=== PATIENT | male | born 1950 | race African-American/Black ===

== ENCOUNTER 2018-07-15 11:23 | Emergency (ER) | payer OTHER ==
[~2018-07-15] VITALS: Ht 188 cm; Wt 74.8 kg
[2018-07-15] MEDS ORDERED: LISINOPRIL (11:49)
[2018-07-15 12:06] LABS: ABSOLUTE NEUTROPHILS 2.7 thou/uL (1.4-8.2); BASOPHILS 0.9 % (0.0-2.0); EOSINOPHILS 2.1 % (0.0-3.0); HEMATOCRIT 39.1 % (42.0-52.0); HEMOGLOBIN 13.2 gm/dL (14.0-18.0); LYMPHOCYTES 38.8 % (24.0-44.0); MCH 30.8 pg (26.0-34.0); MCHC 33.7 g/dL (28.0-37.0); MCV 91.5 fL (80.0-100.0); MONOCYTES 8.6 % (1.0-8.0); PLATELET COUNT 213 thou/uL (150-400); POLYS 49.6 % (36.0-66.0); RBC 4.28 mil/uL (4.50-6.00); RDW 15.2 % (10.5-14.5); WBC 5.5 thou/uL (4.0-11.0)
[2018-07-15 12:16] LABS: ANION GAP 7 mmol/L (7-16); BUN 16 mg/dL (7-18); CALCIUM 9.4 mg/dL (8.5-10.1); CHLORIDE 105 mmol/L (98-107); CO2 25 mmol/L (21-32); CREATININE 1.7 mg/dL (0.7-1.3); GLUCOSE 134 mg/dL (74-106); POTASSIUM 4.5 mmol/L (3.5-5.1); SODIUM 137 mmol/L (136-145)
[2018-07-15 12:20] LABS: APTT 26.4 Seconds (24.5-32.8); INR 1.1; PROTIME 11.9 Seconds (9.3-11.4)
[2018-07-15 12:25] LABS: ALBUMIN 3.4 g/dL (3.4-5.0); SGOT 17 U/L (15-37); SGPT 13 U/L (30-65); TOTAL BILIRUBIN 0.5 mg/dL (<0.1-1.0); TOTAL PROTEIN 7.7 g/dL (6.4-8.2); TROPONIN-I <0.06 ng/mL (<0.06)
[2018-07-15] MEDS ORDERED: ANTIVERT25 MG PO (16:46)
[2018-07-15] MEDS ORDERED: NORFLEX100 MG PO (16:46)
[2018-07-15 17:07] VITALS: BP 110/62
--- NOTE | 2018-07-16 09:16 | EKG ---
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: [facility] : 1950 Requested By: Corwin Ramos Order Number: [id number] MD: Carl Marsh Measurements Intervals [place] Rate: 62 P: -46 VT: 182 QRS: -29 QRSD: 97 T: 242 QT: 491 QTc: 499 Interpretive Statements Sinus or ectopic atrial rhythm Poor R wave progression Abnormal T, consider ischemia No previous ECG available for comparison Electronically Signed On 07-16-2018 9:16:18 CDT by Carl Marsh [email or web address] ��������������������������������������������� <ELECTRONICALLY SIGNED> ���������������������������������������� By: Carl Marsh MD, [facility] ��������������������������������������������� 07/16/18 0916 1136 1136 Carl Marsh MD, FACC /EPI
== END 2018-07-15 17:08 | disposition home or self-care (01) ==
LOC: ER 11:23
PROVIDERS: Emergency Medicine
DX: R42 Dizziness and giddiness (principal); F17.210 Nicotine dependence, cigarettes, uncomplicated

== ENCOUNTER 2019-01-30 05:59 | Inpatient (IN) | payer OTHER ==
[~2019-01-30] VITALS: Ht 188 cm; Wt 77.1 kg
[~2019-01-30 05:59] MED LIST: ANTIVERT25 MG PO; LISINOPRIL; NORFLEX100 MG PO
[2019-01-30 06:00] VITALS: BP 210/150
[2019-01-30 06:24] LABS: ABSOLUTE NEUTROPHILS 2.4 thou/uL (1.4-8.2); EOSINOPHILS 1.6 % (0.0-3.0); HEMATOCRIT 38.5 % (42.0-52.0); HEMOGLOBIN 12.6 gm/dL (14.0-18.0); LYMPHOCYTES 40.6 % (24.0-44.0); MCH 29.7 pg (26.0-34.0); MCHC 32.8 g/dL (28.0-37.0); MCV 90.7 fL (80.0-100.0); PLATELET COUNT 257 thou/uL (150-400); POLYS 48.8 % (36.0-66.0); RBC 4.25 mil/uL (4.50-6.00); RDW 15.7 % (10.5-14.5); WBC 4.9 thou/uL (4.0-11.0)
[2019-01-30] MEDS ORDERED: AMLODIPINE BESY10 MG PO (06:25)
[2019-01-30] MEDS ORDERED: COREG25 M1 PO (06:27)
[2019-01-30 06:28] LABS: CALCIUM 8.8 mg/dL (8.5-10.1); CREATININE 1.2 mg/dL (0.7-1.3); POTASSIUM 3.5 mmol/L (3.5-5.1)
[2019-01-30] MEDS ORDERED: HYDRALAZINE 2525 M1 PO (06:28)
[2019-01-30] MEDS ORDERED: CARVEDILOL25 MG PO (06:31)
[2019-01-30] MEDS ORDERED: IRBESARTAN75 MG PO (06:33)
[2019-01-30 06:37] LABS: TROPONIN-I 0.06 ng/mL (<0.06)
[2019-01-30] MEDS ORDERED: CLONIDINE HCL0.2 M2 PO (07:08)
--- NOTE | 2019-01-30 11:09 | EKG ---
[address] [address] ELECTROCARDIOGRAM REPORT Name: PURNIMA SUMMERS Room #: 170-1 ADM IN M.R.#: [id number] Admission: 01/30/19 Attend Phys: Josh Cody MD Discharge: Date of : 46 Report #: [id number] THIS REPORT FOR: //name// [facility] ED Test Date: 2019-01-30 Test Time: 06:01:08 Pat Name: PURNIMA SUMMERS Department: Room: 170 Gender: M Supervisor Agricultural Education: MARY : 1950 Requested By: Corwin Ramos Order Number: [id number] MD: Carl Marsh Measurements Intervals [place] Rate: 89 P: -17 MD: 167 QRS: -19 QRSD: 94 T: 107 QT: 377 QTc: 459 Interpretive Statements Sinus rhythm Atrial premature complexes LVH with secondary repolarization abnormality no previous ECGs available for comparison Electronically Signed On 01-30-2019 11:09:40 CDT by Carl Marsh [email or web address] <ELECTRONICALLY SIGNED> By: Carl Marsh MD, [facility] 01/30/19 1109 D: 10600 0 Carl Marsh MD, FACC /EPI
[2019-01-30 13:22] VITALS: BP 121/72
[2019-01-30 14:29] VITALS: BP 124/76
[2019-01-30 14:31] VITALS: BP 124/76
[2019-01-30 15:18] VITALS: BP 149/103
--- NOTE | 2019-01-30 15:22 | NUR ---
PT ORIENTED TO ROOM AND UNIT. BED LOW AND LOCKED, SIDE RIALS UPX3 CALL LIGHT IN REACH. TELE APPLIED AND ALL DOCUMENTS SIGNED. WILL CONTINUE TO ASSESS.
[2019-01-30 19:49] VITALS: BP 157/111
[2019-01-30] MEDS ORDERED: MELATONIN5 M6 PO (19:57)
[2019-01-31 00:20] VITALS: BP 141/89
--- NOTE | 2019-01-31 04:01 | NUR ---
Patient making slow progress towards outcome goals. Rhythm stable. No complaints of chest pain. BP slowly coming down. Low fall risks. Calls out appropriately for needs. Cardiology consulted. Current smoker, smoking cessation info provided.
[2019-01-31 04:20] VITALS: BP 149/106
[2019-01-31 07:33] VITALS: BP 161/119
--- NOTE | 2019-01-31 11:53 | EKG ---
[place] [address] [facility] [place] [address] ELECTROCARDIOGRAM REPORT Name: PURNIMA SUMMERS Room #: 353-P ADM IN M.R.#: [id number] Admission: 01/30/19 Attend Phys: Josh Cody MD Discharge: Date of : 46 Report #: [id number] THIS REPORT FOR: //name// [facility] Test Date: 2019-01-31 Test Time: 09:41:02 Pat Name: PURNIMA SUMMERS Department: Room: 353 P Gender: M Instructor Dancing: Da PARTIDA : 1950 Requested By: Laurence Shields Order Number: [id number] MD: Carl aMrsh Measurements Intervals [place] Rate: 61 P: 51 MT: 180 QRS: -12 QRSD: 96 T: 210 QT: 450 QTc: 454 Interpretive Statements Sinus rhythm Left ventricular hypertrophy Abnormal T, consider ischemia Compared to ECG 01/30/2019 06:01:08 T-wave abnormality more prominent Electronically Signed On 01-31-2019 11:52:45 CDT by Carl Marsh [email or web address] <ELECTRONICALLY SIGNED> By: Carl Marsh MD, [facility] 01/31/19 1152 0941 0941 Carl Marsh MD, [facility] /EPI
[2019-01-31 12:14] VITALS: BP 135/92
[2019-01-31 16:46] VITALS: BP 156/113
[2019-01-31 17:48] LABS: CHOLESTEROL 145 mg/dL (<200); HDL CHOLESTEROL 61 mg/dL (>40); LDL CHOLESTEROL 75 mg/dL (<100); TC:HDL 2.4 Ratio (Not establshd); TRIGLYCERIDE 48 mg/dL (<150); VLDL 10 mg/dL (<40)
--- NOTE | 2019-01-31 18:00 | NUR ---
ASSUMED PATIENT CARE AT 0700. FEELS CHEST PRESSURE. NO N/V. UP AD SANDIE. WILL HAVE HEART CATH IN AM. WILL KEEP MONITOR.
[2019-01-31 19:10] VITALS: BP 108/74
[2019-02-01] VITALS (14 sets, daily range): BP systolic 114–167; BP diastolic 72–127
--- NOTE | 2019-02-01 04:29 | NUR ---
Patient making slow progress towards outcome goals. Denies chest pain. BP slowly coming down. NPO after MN for heart cath. Consent obtained by previous shift. Patient expressed understanding of procedurem states he has no questions at this time.
[2019-02-01 05:43] LABS: CALCIUM 8.8 mg/dL (8.5-10.1); CREATININE 1.3 mg/dL (0.7-1.3); POTASSIUM 4.5 mmol/L (3.5-5.1)
--- NOTE | 2019-02-01 09:04 | NUR ---
ASSUMED CARE OF PATIENT AT 0700. PATIENT TAKEN TO ORIENTATION AND MOBILITY SPECIALIST/ECHO SHORTLY AFTER. PATIENT ALERT AND ORIENTED X4. HIS MAIN CONCERN WAS SPEAKING WITH HIS PHYSICIANS TODAY. RECIEVED ORDER FOR PATIENT TO TRANSFER TO CCU. AWAITING BED FROM IT ANALYST. PATIENT TELEMETRY REMOVED PRIOR TO HIM BEING TRANSPORTTED OFF THE FLOOR. PATIENT'S PERSONAL BELONGINGS ARE STILL IN HIS ROOM HERE.
--- NOTE | 2019-02-01 12:22 | 2DMMODE ---
[facility] [address] [place] [address] 2 D/M-MODE ECHOCARDIOGRAM Name: MELINAPURNIMA Room #: 200-I ADM IN .R.#: [id number] Admission: 01/30/19 Attend Phys: Carson Diane Discharge: Date of : 46 Report #: [id number] THIS REPORT FOR: //name// APPROVED REPORT Study performed: 02/01/2019 10:17:49 EXAM: Comprehensive 2D, Doppler, and color-flow Echocardiogram Patient Location: Bedside Room #: 353 Status: routine BSA: 2.02 HR: 54 bpm BP: 158/114 mmHg Rhythm: Bradycardia Other Information Study Quality: Good Indications CAD Chest Pain 2D Dimensions RVDd: 28.08 mm IVSd: 13.86 (7-11mm) LVOT Diam: 22.26 (18-24mm) LVDd: 48.20 mm PWd: 14.31 (7-11mm) Ascending Ao: 34.16 (22-36mm) LVDs: 40.21 (25-40mm) Aortic Root: 33.36 mm IVC: 22.00 mm Volumes Left Atrial Volume (Systole) Single Plane 4CH: 110.11 mL Single Plane 2CH: 96.15 mL LA ESV Index: 53.00 mL/m2 Aortic Valve AoV Peak Blas.: 1.79 m/s AO Peak Gr.: 12.78 mmHg LVOT Max P.47 mmHg AO Mean Gr.: 6.80 mmHg LVOT Mean P.39 mmHg AO V2 Mean: 1.21 m/s LVOT Max V: 1.06 m/s AO V2 VTI: 30.14 cm LVOT Mean V: 0.69 m/s MARIBELL (VTI): 2.79 cm2 LVOT V1 VTI: 21.64 cm MARIBELL Vmax: 2.30 cm2 SV (LVOT): 84.21 mL [facility] [place] [place] [address] 2 D/M-MODE ECHOCARDIOGRAM Name: MELINAPURNIMA Room #: 200-I [facility] IN .R.#: [id number] Admission: 01/30/19 Attend Phys: Carson Diane Discharge: Date of : 46 Report #: [id number] Mitral Valve E/A Ratio: 4.7 MV Decel. Time: 192.88 ms MV E Max Blas.: 0.94 m/s MV A Blas.: 0.20 m/s MV PHT: 55.93 ms IVRT: 143.02 ms Pulmonary Valve PV Peak Blas.: 1.07 m/s PV Peak Gr.: 4.91 mmHg Pulmonary Vein P Vein S: 0.23 m/s P Vein A: 0.16 m/s P Vein D: 0.58 m/s P Vein A Dur.: 96.9 msec P Vein S/D Ratio: 0.40 Tricuspid Valve TR Peak Blas.: 3.51 m/s TR Peak Gr.: 49.16 mmHg PA Pressure: 59.00 mmHg Left Ventricle The left ventricle is normal size. There is global hypokinesis of the left ventricle. Mild concentric left ventricular hypertrophy. Left ventricular systolic function is moderate to severely decreased. LVEF is 30-35%. Severe diastolic dysfunction Right Ventricle The right ventricle is normal size. The right ventricular systolic function is normal. Atria Left atrium is dilated. Right atrium is dilated. Aortic Valve Aortic valve is calcified. Trace to mild aortic regurgitation. Mild aortic stenosis. Mitral Valve Mild mitral annular calcification Moderate mitral regurgitation. No evidence of mitral valve stenosis. Tricuspid Valve The tricuspid valve is normal in structure. There is mild tricuspid regurgitation. Estimated PAP 55 mmHg There is moderate pulmonary [facility] [address] [place] [address] 2 D/M-MODE ECHOCARDIOGRAM Name: PURNIMA SUMMERS Room #: 200-I ADM IN [facility]#: [id number] Admission: 01/30/19 Attend Phys: Carson Diane Discharge: Date of : 46 Report #: [id number] hypertension. Pulmonic Valve The pulmonary valve is normal in structure. Trace pulmonic regurgitation. Great Vessels The aortic root is normal in size. IVC is dilated and collapses >50% with inspiration. Pericardium There is no pericardial effusion. <Conclusion> Left ventricular systolic function is moderate to severely decreased. LVEF is 30-35%. Severe diastolic dysfunction Both atria are dilated. Aortic valve is calcified. Mild aortic stenosis. Trace to mild aortic regurgitation. Mild mitral annular calcification Moderate mitral regurgitation. There is mild tricuspid regurgitation. Estimated pulmonary artery pressure of 55 mmHg There is no pericardial effusion. <ELECTRONICALLY SIGNED> By: Carl Marsh MD, FACC 02/01/19 1222 122 21 Carl Marsh MD, FACC /INF
--- NOTE | 2019-02-01 12:50 | CATHLAB ---
[facility] [address] [place] [address] INVASIVE PROCEDURE REPORT Name: PURNIMA SUMMERS Room #: 200-I ADM IN M.R.#: [id number] Admission: 01/30/19 Attend Phys: Carson Diane Discharge: Date of : 46 Report #: [id number] THIS REPORT FOR: //name// APPROVED REPORT Study performed: 02/01/2019 07:58:58 Patient Details Patient Status: In-Patient Room #: The patient is a 68 year-old male Event Personnel Carl Marsh Brush Maker, Mike Sprague RN, Francois Mullen RTR Leeub, Yang Agarwal Monitor, Darryl Osorio RTR Monitor Procedures Performed Art Access - R femoral artery* Left Heart Cath w/or w/o Coronaries [id number] [facility] Place w/wo Plasty Single RCA 824554 47450 Initial Mod Sed Same Phys/QHP Gr5y 560164 08741 Mod Sed Same Phys/QHP Ea 658766 Hemostasis w/ Mynx Supravalvular Aortography Injection [id number] ISVA Indication Chest pain Procedure Narrative The patient was brought electively to the Cardiac Catheterization Laboratory and was prepped and draped in a sterile manner. The Right Groin^ was infiltrated with 1% Lidocaine subcutaneous anesthesia. A PINNACLE 6FR Sheath #[id number] sheath was inserted into the RFA^. Coronary angiography was performed using coronary diagnostic catheters. The right coronary system was accessed and visualized with a JR4 catheter. The left coronary system was accessed and visualized with a JL4 catheter. The left ventricle was accessed and visualized with a Pigtail catheter. Left ventricular/Aortic Valve gradient assessed via catheter pullback. Left ventriculogram was performed in 30 degree projection. Closure device was deployed with a Fr MYNXGRIP 6/7F #[id number]. The patient tolerated the procedure well and there were no complications associated with the procedure. There was no hematoma. Intraoperative Conscious Sedation Sedation start time: 8:10 Case end Time: 9:52 [facility] [address] [place] [address] INVASIVE PROCEDURE REPORT Name: PURNIMA SUMMERS Room #: 200-I [facility] IN ..#: [id number] Admission: 01/30/19 Attend Phys: Carson Diane Discharge: Date of : 46 Report #: [id number] Fentanyl 100 mcg Versed 2.0 mg Fluoro Time: 24.20 minutes Dose: DAP 15686.30 cGycm2 3588 mGy Contrast Type and Amount: Visipaque 440 ml Coronary Angiography The patient's coronary anatomy is right dominant. Diagnostic Cath Left Main Normal left main LAD Mild LAD plaquing with a previously placed mid LAD stent, widely patent Diagonal 1 Large first diagonal branch with mild proximal plaquing Circumflex Large but nondominant circumflex. Mild proximal plaquing. OM1 First marginal branch exhibited minimal mid vessel plaquing OM2 Second marginal branch exhibited a 60-70% ostial stenosis. 85% proximal OM 2 stenosis Right Coronary Dominant right coronary with a severe cleft-like mid right coronary stenosis of 85% R PDA 80% stenosis at the origin of the posterior descending followed by a 99% proximal PDA stenosis Left Ventriculography The left ventricle is mild to moderately dilated in size with abnormal contractility. The left ventricular ejection fraction is estimated to be 30-35%. Left ventricular wall motion abnormalities are not present. There is no mitral insufficiency. LVH was present. Moderately severe global left ventricular dysfunction with left ventricular enlargement. Supravalvular aortography demonstrated a mildly calcified aortic valve, mildly insufficient Hemodynamics The aortic pressure is 167/72 mmHg with a mean of 113 mmHg. The left ventricular pressure is 161/4 mmHg with a mean of mmHg. The left ventricular end diastolic pressure is 34 mmHg. There was no gradient across the aortic valve upon pullback. Pullback from the left ventricle to the aorta revealed no gradient across the aortic valve. PCI Technique Lesion Anticoagulation was achieved with Heparin, Integrilin. Patient was preloaded with Effient. Percutaneous coronary intervention was [facility] [address] [place] [address] INVASIVE PROCEDURE REPORT Name: PURNIMA SMUMERS Room #: 200-I ADM IN M.R.#: [id number] Admission: 01/30/19 Attend Phys: Carson Diane Discharge: Date of : 46 Report #: [id number] performed on the right posterior descending artery. The lesion stenosis prior to intervention was 99% with GERALD 3 flow. A LAUNCHER 6FR JR 4 #[id number] Guide Catheter was used to engage the ostium. A Luge Wire .014 x 182CM #[id number] Interventional Guidewire was used to cross the lesion. BALLOON DILATION A Balloon catheter Sprinter OTW 2.5 x 15 #[id number] was inserted and inflated up to 10.00atm for 35seconds. Additional Inflation: 8.00atm for 27seconds. Additional Inflation: 12.00atm for 33seconds. STENT DEPLOYMENT A drug-eluting stent RESOLUTE JIM RX 2.5 X 22 #[id number] was inserted and inflated up to 16.00atm for 34seconds. There was moderate plaque shifting into the origin of the posterior lateral branch which was ballooned. POST STENT DEPLOYMENT BALLOON DILATION A Balloon catheter TREK NC RX 2.5 X 15 #[id number] was inserted and inflated up to 22.00atm for 39seconds. Final angiography reveals 0 % stenosis with GERALD 3 flow. PCI Technique Lesion 2 Percutaneous Coronary Intervention was performed on the first right posterior lateral segment. Percutaneous coronary intervention was performed on the ostial posterolateral branch. The lesion stenosis prior to intervention was 85% with GERALD 3 flow. A LAUNCHER 6FR JR 4 #[id number] Guide Catheter was used to engage the ostium. A Luge Wire .014 x 182CM #[id number] Interventional Guidewire was used to cross the lesion. Balloon Dilation A Balloon catheter Euphora RX 2.75 x 12 #[id number] was inserted and inflated up to 12.00atm for 59seconds. Overall good angioplasty result with GERALD-3 flow maintained. Mild 10-20% residual stenosis post PTCA PCI Technique Lesion 3 Percutaneous Coronary Intervention was performed on the mid right coronary artery. The lesion stenosis prior to intervention was 85% with GERALD 3 flow. A LAUNCHER 6FR JR 4 #[id number] Guide Catheter was used to engage the ostium. A Luge Wire .014 x 182CM #[id number] Interventional Guidewire was used to cross the lesion. Balloon Dilation [address] [address] INVASIVE PROCEDURE REPORT Name: PURNIMA SUMMERS Room #: 200-I ADM IN M.R.#: [id number] Admission: 01/30/19 Attend Phys: Carson Diane Discharge: Date of : 46 Report #: [id number] A Balloon catheter TREK NC RX 2.5 X 15 #[id number] was inserted and inflated up to 22.00atm for 30seconds. Additional Inflation: 22.00atm for 23seconds. Stent Deployment A drug-eluting stent RESOLUTE JIM RX 4.0 X 34 #[id number] was inserted and inflated up to 14.00atm for 30seconds. Post Stent Deployment Balloon Dilation A Balloon catheter Euphora NC RX 4.0 x 20 #[id number] was inserted and inflated up to 10.00atm for 34seconds. Additional Inflation: 20.00atm for 29seconds. Final angiography reveals 0 % stenosis with GERALD 3 flow. Conclusion 1. Moderately severe left ventricular dysfunction with left ventricular enlargement and LVH. Ejection fraction 30-35%. 2. Mildly calcified, nonstenotic aortic valve by supravalvular aortography. 3. Normal left main 4. Mild plaquing in the left anterior descending 5. Large, nondominant circumflex. Sequential ostial and proximal disease in the second marginal branch. Continued pharmacologic therapy recommended. This will be followed closely, possible intervention for refractory symptoms. 6. Severe, ulcerated mid right coronary disease successfully stented with a 4.0 x 34 mm Resolute stent. 7. Severe posterior descending branch disease successfully stented with a 2.5 x 22 mm Resolute stent. Moderate plaque shifting into a posterolateral branch successfully ballooned with mild residual plaquing evident. Recommendations Smoking Cessation Cardiac Rehabilitation Referral Aggressive Medical Therapy <ELECTRONICALLY SIGNED> By: Carl Marsh MD, [facility] 02/01/19 1250 1250 1250 Carl Marsh MD, FACC /INF
--- NOTE | 2019-02-01 15:48 | NUR ---
RECIEVED PATIENT FROM MANAGER DEVELOPMENTAL S/P HEART CATH. ALERT AND ORIENTED X4, MORNING MEDS GIVEN, AND BP IS BACK WNL, SEE POST CATH FLOW SHEET. DENIES AND CP OR DISCOMFORT AND ASSESMENT CHARTED. AND WILL CONTINUE WITH POC.
[2019-02-02] VITALS (8 sets, daily range): BP systolic 122–168; BP diastolic 75–109
--- NOTE | 2019-02-02 02:36 | NUR ---
ASSESSMENT CHARTED, MEDS GIVEN CHARTED. PATIENT RESTING IN BED DURING SHIFT. POST CATH PROCEDURE WITH 2 STENTS PLACED VIA RIGHT GROIN ACCESS WHICH IS CLEAN, DRY, INTACT, SOFT. DENIES PAIN. UP AT SANDIE IN ROOM. FLUID RUNNING. FALL PRECAUTIONS IN PLACE. PLAN IS TO CONTINUE CARE FOR ONE MORE DAY BEFORE DISCHARGING PATIENT.
[2019-02-02 04:50] LABS: HEMATOCRIT 34.4 % (42.0-52.0); HEMOGLOBIN 11.1 gm/dL (14.0-18.0); MCH 29.4 pg (26.0-34.0); MCHC 32.4 g/dL (28.0-37.0); MCV 90.6 fL (80.0-100.0); RBC 3.79 mil/uL (4.50-6.00); RDW 15.8 % (10.5-14.5); WBC 6.2 thou/uL (4.0-11.0)
[2019-02-02 05:02] LABS: ALBUMIN 2.9 g/dL (3.4-5.0); CALCIUM 8.5 mg/dL (8.5-10.1); CREATININE 1.3 mg/dL (0.7-1.3); POTASSIUM 4.5 mmol/L (3.5-5.1); TOTAL BILIRUBIN 0.2 mg/dL (<0.1-1.0); TOTAL PROTEIN 6.7 g/dL (6.4-8.2)
[2019-02-02 05:03] LABS: TROPONIN-I 1.31 ng/mL (<0.06)
[2019-02-02] MEDS ORDERED: ASA5UEC PO (07:30)
[2019-02-02] MEDS ORDERED: LIPITOR40 MG PO (07:30)
[2019-02-02] MEDS ORDERED: EFFIENT10 MG PO (07:30)
[2019-02-02] MEDS ORDERED: IRBESARTAN-HCT1 EAC1 PO (07:30)
--- NOTE | 2019-02-02 08:34 | EKG ---
[address] [place] [address] ELECTROCARDIOGRAM REPORT Name: PURNIMA SUMMERS Room #: 200-I ADM IN M.R.#: [id number] Admission: 01/30/19 Attend Phys: Josh Cody MD Discharge: Date of : 46 Report #: [id number] THIS REPORT FOR: //name// [facility] Test Date: 2019-02-01 Test Time: 10:05:14 Pat Name: PURNIMA SUMMERS Department: Room: 200 Gender: M Premium Service Representative: Mark BURNS : 1950 Requested By: Carl Marsh Order Number: [id number] MD: Carl Marsh Measurements Intervals [place] Rate: 65 P: -60 SD: 193 QRS: -28 QRSD: 97 T: QT: 463 QTc: 482 Interpretive Statements Sinus rhythm Left ventricular hypertrophy Borderline T abnormalities, inferior leads Borderline prolonged QT interval Compared to ECG 01/31/2019 09:41:02 Anterior T wave abnormality is less pronounced Electronically Signed On 02-02-2019 8:34:02 CDT by Carl Marsh [email or web address] <ELECTRONICALLY SIGNED> By: Carl Marsh MD, [facility] 02/02/19 0834 1005 1005 Carl Marsh MD, [facility] /EPI
--- NOTE | 2019-02-02 08:40 | EKG ---
[place] [address] [facility] [facility] [address] ELECTROCARDIOGRAM REPORT Name: PURNIMA SUMMERS Room #: 200-I ADM IN M.R.#: [id number] Admission: 01/30/19 Attend Phys: Josh Cody MD Discharge: Date of : 46 Report #: [id number] THIS REPORT FOR: //name// [facility] Test Date: 2019-02-02 Test Time: 07:35:06 Pat Name: PURNIMA SUMMERS Department: Room: 200 I Gender: M Media Relations Director: AUBRIE : 1950 Requested By: Carl Marsh Order Number: [id number] MD: Carl Marsh Measurements Intervals [place] Rate: 65 P: 51 WI: 184 QRS: -13 QRSD: 95 T: 73 QT: 458 QTc: 477 Interpretive Statements Sinus rhythm Probable left ventricular hypertrophy Nonspecific T abnormalities, lateral leads Borderline prolonged QT interval Compared to ECG 01/31/2019 09:41:02 No significant change was found Electronically Signed On 02-02-2019 8:39:55 CDT by Carl Marsh [email or web address] <ELECTRONICALLY SIGNED> By: Carl Marsh MD, [facility] 02/02/19 0839 0735 0735 Carl Marsh MD, [facility] /EPI
--- NOTE | 2019-02-02 10:15 | NUR ---
ASSUMED CARE AT SHIFT CAHNGE, ALERT AND ORIENTED X4. C/O SOB AND LIGHT HEADNESS WHEN UP WALKING, MD NOTIFIED. BP 169/96, AM BP MEDS GIVEN, DENIES ANY CP AND WILL CONTINUE TO MONITOR PATIENT. CONTINUE WITH POC.
[2019-02-03 04:30] VITALS: BP 149/106
--- NOTE | 2019-02-03 05:09 | NUR ---
ASSUMED PT CARE AT 1900. PT IS ALERT AND ORIENTED. NO SIGN OF DISTRESS NOTED. NO FAMILY AT BEDSIDE. RN TO MONITOR BLOOF PRESSURE. PT COMPLAIN OF RIGHT GROIN PAIN. ASSESSMENT COMPLETED AND DOCUMENTED. SCHEDULED MEDS ADMINISTERED TO PT. HEART RHYTHM STABLE. MDENIES ANY MORE PAIN. CONTINUE TO MONITOR PATIENTS. DENIES ANY FURTHER NEEDS AT THIS TIME.
[2019-02-03 07:10] VITALS: BP 161/102
[2019-02-03 12:10] VITALS: BP 137/88
[2019-02-03 14:16] VITALS: BP 122/83
--- NOTE | 2019-02-03 15:08 | NUR ---
Pt anxious to get home to his grandson. Reviewed dischrge packet and pt verbalzed understanding. See discharge instructions. Pt taken to car by ROSIE Garcia.
--- NOTE | 2019-02-05 12:23 | D ---
[facility] [place] [address] DISCHARGE SUMMARY Name: PURNIMA SUMMERS Room #: 200-I [facility] IN M.R.#: [id number] Admission: 01/30/19 Attend Phys: Josh Cody MD Discharge: 02/03/19 Date of : 46 Report #: [id number] THIS REPORT FOR: //name// CC: Josh Cody DATE OF SERVICE: 02/03/2019 FINAL DIAGNOSES: 1. Non-ST segment elevation myocardial infarction. 2. Coronary artery disease. 3. Chronic systolic heart failure. 4. 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 5. Emphysema. 6. Hypertension. 7. Dyslipidemia. 8. Tobacco abuse. PROCEDURE: Cardiac catheterization with PDA stent and mid RCA stent. HOSPITAL COURSE: The patient was admitted with chest pain. He was diagnosed and treated for non-Q NH. Dr. Marsh took him to the laborer ammunition assembly with stent placement. Please see that dictated report. Post-procedure, he complained of some shortness of breath. He was treated with some respiratory treatments, followup x-ray and incentive spirometer and symptoms improved. Chest x-ray did not reveal a pneumonia or pulmonary infiltrate. He had no other interval complication. PHYSICAL EXAMINATION: GENERAL: On the day of discharge, he was resting in bed. VITAL SIGNS: Stable vital signs. LUNGS: Clear. HEART: Regular. ABDOMEN: Soft, normoactive bowel sounds. EXTREMITIES: No edema. O2 sat was 98% to 100% on room air. DISPOSITION: He is discharged to home with cardiac, low sodium diet, activity as tolerated. No heavy lifting for 2 weeks. Follow up with Dr. Marsh in a month and Dr. Cody in 2 weeks. DISCHARGE MEDICATIONS: Effient 10 mg, Lipitor 40 mg, aspirin 325 mg, [facility] [address] [place] [address] DISCHARGE SUMMARY Name: PURNIMA SUMMERS Room #: 200-I DIS IN M.R.#: [id number] Admission: 01/30/19 Attend Phys: Josh Cody MD Discharge: 02/03/19 Date of : 46 Report #: [id number] irbesartan/HCTZ 300/12.5 mg, Norvasc 10 mg, Coreg 25 mg twice a day, clonidine 0.1 mg a day and melatonin at bedtime, Tylenol as needed. <ELECTRONICALLY SIGNED> By: Yang Diaz MD 02/05/19 1223 1237 1858 Yang Diaz MD /nt
--- NOTE | 2019-02-22 18:50 | H ---
[facility] [place] [address] HISTORY AND PHYSICAL Name: PURNIMA SUMMERS Room #: 200-I [facility] IN M.R.#: [id number] Admission: 01/30/19 Attend Phys: Josh Cody MD Discharge: 02/03/19 Date of : 46 Report #: [id number] THIS REPORT FOR: //name// CC: Josh Cody DATE OF SERVICE: 01/30/2019 SUBJECTIVE: This is a 68-year-old male who I saw in the Emergency Room with chest discomfort. HISTORY OF PRESENT ILLNESS: This is a patient who apparently woke up with significant amount of chest discomfort with some associated dizziness with also left shoulder pain and numbness in his left arm. Would seem different then from a cardiac type of heaviness type feeling. He denied any issues associated with clumsiness or difficulty using his left arm. 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 He has severe hypertension. MEDICATIONS: List includes melatonin, amlodipine, carvedilol, hydralazine, irbesartan and clonidine. ALLERGIES: He has allergies to LISINOPRIL. FAMILY HISTORY: Noncontributory. SOCIAL HISTORY: He continues to smoke and up until now was fully functional. REVIEW OF SYSTEMS: Otherwise, negative. PHYSICAL EXAMINATION: GENERAL: Shows him to be in no distress. He is lying in the Emergency Room. He is kind of frustrated with his left arm numbness. HEENT: Otherwise, negative. NECK: Supple, without thyromegaly or adenopathy. CHEST: Clear. CARDIOVASCULAR: Showed a regular rhythm without murmur. ABDOMEN: Soft and nontender. EXTREMITIES: Negative. NEUROLOGIC: Showed subjective findings of numbness in his left upper extremity. LABORATORY PARAMETERS: Stable. EKG was nonischemic. ASSESSMENT AND PLAN: This is a 68-year-old male with chest discomfort and extreme hypertension on presentation in the Emergency Room. Whether there is an element of coronary artery disease or angina is not quite clear. [facility] [place] [address] HISTORY AND PHYSICAL Name: PURNIMA SUMMERS Room #: 200-I [facility] IN .R.#: [id number] Admission: 01/30/19 Attend Phys: Josh Cody MD Discharge: 02/03/19 Date of : 46 Report #: [id number] possibility that this could have represented a stroke seems possible, but less likely. Most of his discomfort seems more related to rotator cuff on the left and maybe some cervical radiculopathy. Time will tell. <ELECTRONICALLY SIGNED> By: Michael Hutson MD 02/22/19 2555 1130 1150 Michael Hutson MD /PMT
== END 2019-02-03 15:08 | disposition home or self-care (01) | DRG 246 ==
LOC: ER 05:59 → 2N 08:13 → EROBS 08:13 → 3W 08:13 → 2N 02-01 09:46
PROVIDERS: Emergency Medicine; Internal Medicine; Nurse Practitioner Gerontology; ADMIT Internal Medicine
PROC: 027135Z Dilation of Coronary Artery, Two Arteries with Two Drug-eluting Intraluminal Devices, Percutaneous Approach (ICD-10-PCS; principal; 2019-02-01)
PROC: 4A023N7 Measurement of Cardiac Sampling and Pressure, Left Heart, Percutaneous Approach (ICD-10-PCS; 2019-02-01)
PROC: B211YZZ Fluoroscopy of Multiple Coronary Arteries using Other Contrast (ICD-10-PCS; 2019-02-01)
PROC: B215YZZ Fluoroscopy of Left Heart using Other Contrast (ICD-10-PCS; 2019-02-01)
DX: I21.4 Non-ST elevation (NSTEMI) myocardial infarction (principal); I50.23 Acute on chronic systolic (congestive) heart failure; I42.9 Cardiomyopathy, unspecified; I11.0 Hypertensive heart disease with heart failure; I25.10 Atherosclerotic heart disease of native coronary artery without angina pectoris; F17.210 Nicotine dependence, cigarettes, uncomplicated; E78.5 Hyperlipidemia, unspecified; J43.9 Emphysema, unspecified; Z88.8 Allergy status to other drugs, medicaments and biological substances; Z79.899 Other long term (current) drug therapy; Z71.6 Tobacco abuse counseling; I16.0 Hypertensive urgency
CPT/HCPCS: 10081; 10879

== ENCOUNTER 2019-05-25 13:12 | Inpatient (IN) | payer OTHER ==
[~2019-05-25] VITALS: Ht 188 cm; Wt 70.8 kg
--- NOTE | ~2019-05-25 | H ---
[facility] [place] [address] HISTORY AND PHYSICAL Name: PURNIMA SUMMERS Room #: 170-17 ADM IN M.R.#: [id number] Admission: 05/25/19 Attend Phys: Yang Diaz MD Discharge: Date of : 46 Report #: [id number] THIS REPORT FOR: //name// CC: Yang Moreno Escobar DATE OF SERVICE: 05/25/2019 CHIEF COMPLAINT: Dizziness. HISTORY OF PRESENT ILLNESS: The patient is a 68-year-old gentleman, who was admitted through the Emergency Room from outpatient Radiology for a syncopal episode. He was sent to the radiology from the office for a chest x-ray due to complaints of congested cough. He apparently had a syncopal episode while on x-ray and was brought to the Emergency Room. There, he was diagnosed with orthostatic hypotension. He received 2 liters of fluid in the ER, but remained orthostatic. He was admitted for treatment overnight. Today, he still remains dizzy when sitting up. He has not had any more syncope or arrhythmias overnight. PAST MEDICAL HISTORY: Hypertension, coronary artery disease, history of NSTEMI, history of ischemic cardiomyopathy. PAST SURGICAL HISTORY: He has had cardiac catheterization. FAMILY HISTORY: Noncontributory. SOCIAL HISTORY: Occasional tobacco use. ALLERGIES: LISINOPRIL. MEDICATIONS: Clonidine 0.2 mg, Coreg 25 mg b.i.d., amlodipine 10 mg, melatonin, valsartan and hydrochlorothiazide 300/12.5 mg, aspirin 325 mg, Lipitor 40 mg, Effient 10 mg. REVIEW OF SYSTEMS: Denies headache, chest pain, shortness of breath, abdominal pain, nausea, vomiting, diarrhea, constipation, dysuria. OBJECTIVE: VITAL SIGNS: Pulse 72, respirations 20, blood pressure 147/102 supine, sitting 94/59, O2 sat 96% on room air. GENERAL: He is awake and alert, in no distress. HEAD AND NECK: Unremarkable. LUNGS: Clear. HEART: Regular. [facility] [address] [place] [address] HISTORY AND PHYSICAL Name: PURNIMA SUMMERS Room #: [id number] ADM IN ..#: [id number] Admission: 05/25/19 Attend Phys: Yang Diaz MD Discharge: Date of : 46 Report #: [id number] ABDOMEN: Soft, normoactive bowel sounds. EXTREMITIES: No edema. NEUROLOGIC: Motor strength 5/5 throughout and intact. LABORATORY DATA: Reviewed. Troponin negative. Creatinine 1.9. CBC normal. Chest x-ray clear. ASSESSMENT: 1. Orthostatic syncope. 2. Acute bronchitis. 3. Coronary artery disease. 4. Ischemic cardiomyopathy. 5. Hypertension. PLAN: I will reduce his cardiac medications for blood pressure. Orthostatic blood pressures have been ordered and I have added some respiratory treatments for acute bronchitis as he was complaining of congested cough, prerenal azotemia likely related to hydrochlorothiazide use at home. By: 1426 1444 Yang Diaz MD /obdulio
[2019-05-25 13:19] VITALS: BP 89/66
[2019-05-25 14:28] LABS: HEMATOCRIT 38.6 % (42.0-52.0); HEMOGLOBIN 12.5 gm/dL (14.0-18.0); MCH 29.3 pg (26.0-34.0); MCHC 32.5 g/dL (28.0-37.0); MCV 90.3 fL (80.0-100.0); PLATELET COUNT 240 thou/uL (150-400); RBC 4.27 mil/uL (4.50-6.00); RDW 16.5 % (10.5-14.5); WBC 8.5 thou/uL (4.0-11.0)
[2019-05-25 14:42] LABS: ANION GAP 6 mmol/L (7-16); BUN 29 mg/dL (7-18); CALCIUM 8.9 mg/dL (8.5-10.1); CHLORIDE 102 mmol/L (98-107); CO2 28 mmol/L (21-32); CREATININE 1.9 mg/dL (0.7-1.3); GLUCOSE 106 mg/dL (74-106); POTASSIUM 4.2 mmol/L (3.5-5.1); SODIUM 136 mmol/L (136-145)
[2019-05-25 14:50] LABS: TROPONIN-I <0.06 ng/mL (<0.06)
[2019-05-25 15:04] LABS: ABSOLUTE NEUTROPHILS 4.9 thou/uL (1.4-8.2); ANISOCYTOSIS 1+
--- NOTE | 2019-05-25 17:04 | EKG ---
[facility] [place] [address] ELECTROCARDIOGRAM REPORT Name: PURNIMA SUMMERS Room #: [facility]#: [id number] Admission: 05/25/19 Attend Phys: Discharge: Date of : 46 Report #: [id number] THIS REPORT FOR: cc: Josh Cody MD, Stany A. MD Couchonnal,Austin Harris MD ~ THIS REPORT FOR: //name// [facility] ED Test Date: 2019-05-25 Test Time: 14:34:46 Pat Name: PURNIMA SUMMERS Department: Room: Gender: Metal [employer] [place] [facility] 1950 Requested By: Ben Iniguez Order Number: [id number] : Austin Schultz Measurements Intervals [place] Rate: 62 P: 56 LA: 181 QRS: -5 QRSD: 109 T: 65 QT: 430 QTc: 437 Interpretive Statements Sinus rhythm Minimal ST elevation, anterior leads Compared to ECG 02/02/2019 07:35:06 ST (T wave) deviation now present T-wave abnormality no longer present Electronically Signed On 05-25-2019 17:03:33 [employer] by Austin Schultz [email or web address] <ELECTRONICALLY SIGNED> By: Austin Schultz MD 05/25/19 1703 1434 1434 Austin Schultz MD /EPI
[2019-05-25 23:32] VITALS: BP 138/81
[2019-05-26 03:26] VITALS: BP 144/103
[2019-05-26 07:20] VITALS: BP 147/102
[2019-05-26 20:01] VITALS: BP 133/85
[2019-05-26 21:18] VITALS: BP 128/73
[2019-05-26 21:58] VITALS: BP 132/90
[2019-05-27 00:55] VITALS: BP 156/93
--- NOTE | 2019-05-27 04:26 | NUR ---
PT ADMITTED FROM ER TO ROOM 215, TO MONITOR BP, REMINDED PT TO CALL FOR ASSIST IF DIZZINESS CAME BACK, NO C/O PAIN, RESTING QUIETLY IN ROOM WILL CON'T TO MONITOR PER PPOC.
[2019-05-27 04:45] VITALS: BP 135/94
[2019-05-27 06:29] LABS: CALCIUM 8.5 mg/dL (8.5-10.1); CREATININE 1.1 mg/dL (0.7-1.3); POTASSIUM 3.9 mmol/L (3.5-5.1)
[2019-05-27 08:00] VITALS: BP 138/93
[2019-05-27 10:30] VITALS: BP 126/82; BP 132/79; BP 138/80
[2019-05-27 16:00] VITALS: BP 120/73
--- NOTE | 2019-05-27 19:53 | NUR ---
ASSUMED CARE OF PATIENT AT 0700. ASSESSMENTS COMPLETED. TELE STRIPS PRINTED AND PLACED IN THE CHART. PATIENT RESTING COMFORTABLY, SLEEPING THE MAJORITY OF THE DAY AND ASKING NOT TO BE BOTHERED. HE IS COOPERATIVE IN HIS CARE. PATIENT TO CONTINUE WITH POC.
[2019-05-27 19:55] VITALS: BP 122/69
--- NOTE | 2019-05-28 03:59 | NUR ---
ASSESSMENT DOCUMENTED.PT BEEN RESTING IN NO ACUTE DISTRESS.VSS.A/OX4.C/O HEADACHE THAT WAS TREATED WITH TYLENOL W/COMPLETE RELIEF.NSR WITH PACS/PVCS ON MONITOR.NO C/O DIZZINESS.BLOOD PRESSURE WNL.POC IS TO CONT TO MONITOR.
[2019-05-28 04:50] VITALS: BP 138/94
[2019-05-28 08:00] VITALS: BP 138/93; BP 142/89; BP 153/93
--- NOTE | 2019-05-28 11:53 | NUR ---
ASSUMED CARE AT 0700, SHIFT ASSESSMENT DONE, MEDS GIVEN, VSS. ORTHOSTATIC BP PBTANIED, NSR ON TELE. UP AD SANDIE, ROOM AIR, DENIES PAIN. AWIATING FOR DISCHARGE.
[2019-05-28 13:57] VITALS: BP 138/93
== END 2019-05-28 17:24 | disposition home or self-care (01) | DRG 312 ==
LOC: ER 13:12 → 2N 17:32 → EROBS 17:32 → 2N 05-26 21:32
PROVIDERS: Emergency Medicine; ADMIT Internal Medicine Geriatric Medicine
DX: I95.1 Orthostatic hypotension (principal); E86.0 Dehydration; J20.9 Acute bronchitis, unspecified; I10 Essential (primary) hypertension; I25.5 Ischemic cardiomyopathy; I25.10 Atherosclerotic heart disease of native coronary artery without angina pectoris; Z95.5 Presence of coronary angioplasty implant and graft; Z79.82 Long term (current) use of aspirin; Z79.899 Other long term (current) drug therapy; I25.2 Old myocardial infarction; Z88.8 Allergy status to other drugs, medicaments and biological substances
CPT/HCPCS: 10081

== ENCOUNTER → 2019-05-25 | Outpatient (CLI) | payer OTHER ==
[~2019-05-25] MED LIST changes: +AMLODIPINE BESY10 MG PO; +ASA5UEC PO; +CARVEDILOL25 MG PO; +CLONIDINE HCL0.2 M2 PO; +COREG25 M1 PO; +EFFIENT10 MG PO; +HYDRALAZINE 2525 M1 PO; +IRBESARTAN-HCT1 EAC1 PO; +IRBESARTAN75 MG PO; +LIPITOR40 MG PO; +MELATONIN5 M6 PO
== END ==
LOC: RAD 12:35
DX: J44.9 Chronic obstructive pulmonary disease, unspecified (principal); I11.0 Hypertensive heart disease with heart failure; I50.31 Acute diastolic (congestive) heart failure